=== PATIENT | female | born 1990 | race African-American/Black ===

== ENCOUNTER 2016-10-22 09:55 | Emergency (ER) ==
[2016-10-22] MEDS ORDERED: ASPIRIN PO STA (10:00)
[2016-10-22] MEDS ORDERED: NITROGLYCERIN SL PRN (10:00)
--- NOTE | 2016-10-22 10:15 | ED EKG INTERP ---
EKG Interpretation - EKG Time of EKG reading by physician:: 09:57 EKG Read and Signed by:: Asad Ann EKG Interpretation (*Must complete 3 of following elements*): Normal Rate: 78 Rhythm: NSR [place]: normal QRS: normal AR Interval: normal ST Wave: normal Attestation - Scribe Verification/Attestation Scribe:: Hermann Juárez Acting as Scribe for:: Asad Ann Scribe documention review:: This chart was documented by a scribe and accurately reflects the service the provider performed and the decisions made by the provider. Physician Attestation - Physician Attestation I, the provider, attest to the following statement:: Asad Ann Physician documentation Attestation:: This documentation recorded by the scribe accurately reflects the service I personally performed and the decisions made by me.
[2016-10-22 10:19] LABS: MANUAL DIFF NEEDED? NO
[2016-10-22 10:31] LABS: BASO% 0.2 % (0.0-0.8); EOS# 0.17 X1000 (0.0-0.7); EOS% 1.9 % (0.0-10.0); HEMATOCRIT 38.1 % (37.0-47.0); HEMOGLOBIN 13.1 g/dL (12.0-16.0); IMM GRAN# 0.04 X1000 (0.0-0.04); IMM GRAN% 0.5 % (0.0-0.5); LYMPH# 1.64 X1000 (1.2-3.4); LYMPH% 18.6 % (20.5-51.1); MCH 29.9 PG (27-31); MCHC 34.4 g/dL (33-37); MONO# 0.61 X1000 (0.11-0.59); MONO% 6.9 % (1.7-9.3); MPV 10.8 FL (7.4-10.4); PLT 258 X1000 (130-400); RBC 4.38 XMIL (4.2-5.4)
[2016-10-22 10:32] LABS: INR 0.96; PTT 25.7 Seconds (22.0-36.0)
[2016-10-22 10:35] LABS: NEUT% 71.9 % (42.2-75.2)
[2016-10-22 10:45] LABS: AGAP 10; ALBUMIN 4.1 g/dL (3.5-5.0); ALKALINE PHOSPHATASE 62 U/L (32-104); BUN 9 mg/dL (8-22); CALCIUM 8.6 mg/dL (8.8-10.2); CHLORIDE 103 mmol/L (98-107); COSMO 265; GOT 13 U/L (10-30); GPT 8 U/L (10-36); POTASSIUM 4.2 mmol/L (3.5-5.1); SODIUM 133 mmol/L (136-145); TCO2 20 mmol/L (25-35); TOTAL BILIRUBIN 0.57 mg/dL (0.20-1.00); TOTAL PROTEIN 7.1 g/dL (6.3-8.3)
[2016-10-22 10:47] LABS: CK PROFILE 177 U/L (24-173)
--- NOTE | 2016-10-22 10:49 | EKG Report ---
Test Performed on : 10/22/2016 09:57:15 AM Test Reason : Chest Pain Blood Pressure : / mmHG Vent. Rate : 078 BPM Atrial Rate : 078 BPM P-R Int : 130 ms QRS Dur : 072 ms QT Int : 386 ms P-R-T Axes : 025 025 011 degrees QTc Int : 440 ms Normal sinus rhythm. Normal ECG When compared with ECG of 11-NOV-2014 14:27, No significant change was found Unconfirmed Result
[2016-10-22 11:09] LABS: CK INDEX 0.9 (0.0-2.5); CK-MB 1.59 ng/mL (0.0-5.0)
--- NOTE | 2016-10-22 11:14 | Diag Imaging Result Document ---
PROCEDURE NAME: CHEST-2 VIEWS - 10/22/2016 CHEST X-RAY, 2 VIEWS: COMPARISON: 04/16/2015. FINDINGS: The lungs are normally expanded and clear. Heart size and mediastinal contours are normal. No pneumothorax or pleural effusion. IMPRESSION: Negative exam.
--- NOTE | 2016-10-22 11:14 | PROVIDER DOCUMENTATION ---
HPI-Chest Pain - General Chief Complaint: Chest Pain Stated Complaint: CHEST PAIN GOING TO BACK Time Seen by Provider: 10/22/16 10:12 Source: patient Allergies/Adverse Reactions: Patient Allergies Allergy/AdvReac Type Severity Reaction Status Date / Time No Known Allergies Allergy Verified 10/22/16 10:22 Home Medications: Home Medication List Medication Instructions Recorded Confirmed Last Taken Type Naproxen 500 mg PO BID #20 tablet 10/22/16 Unknown Rx - History of Present Illness-CP Nature of Presenting Problem: 26 y/o F with history of anxiety and depression presents with CP that began yesterday morning. Patient states she woke up with the pain and that it has been progressively worsening since. She describes the pain as shooting, intermittent, lasting approx 2 minutes, and radiating to mid/upper back and into left index finger and left wrist. 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 She reports increase in stress recently. She is not on any medication for anxiety or depression. She has had similar pain in the past associated with "stress". She has taken motrin, tums and pepto without relief. Location: reports: central Chest Pain Radiation: reports: back, other (left index finger) Severity in ED: moderate Onset/Duration: 2 days ago Timing: still present Context/Activities at Onset: reports: none Modifying Factors: improves with: lying down (worsens), movement (worsens) Associated Symptoms: reports: back pain. denies: abdominal pain, diaphoresis, dizziness, fever/chills, heartburn, nausea, shortness of breath, syncope, vomiting, weakness Similar Symptoms Previously?: Yes Review of Systems - Adult - REVIEW OF SYSTEMS - ADULT Constitutional: reports: no symptoms reported. denies: chills, fever Eyes: reports: no symptoms reported. denies: decreased vision, blurred vision Ears, Nose, Mouth & Throat: reports: no symptoms reported. denies: ear pain, hearing loss Cardiovascular: reports: chest pain Respiratory: reports: no symptoms reported. denies: cough, shortness of breath , wheezing Gastrointestinal: reports: no symptoms reported. denies: abdominal pain, nausea , vomiting Genitourinary: reports: no symptoms reported. denies: dysuria, hematuria Musculoskeletal: reports: back pain, muscle aches Integumentary: reports: no symptoms reported. denies: itching, rash Neurological: reports: no symptoms reported. denies: dizziness/vertigo, headache/migraines Psychiatric: reports: anxiety, depression, other (no homicidal thoughts). denies: suicidal thoughts Endocrine: reports: no symptoms reported Hematologic/Lymphatic: reports: no symptoms reported Allergic/Immunologic: reports: no symptoms reported All Other Systems: Reviewed and Negative Past History - Adult - PAST MEDICAL HISTORY-ADULT Review of Records: reports: Old Records Reviewed, Nursing Assessment Review, Medications Reviewed, Social history reviewed & non-contributory. Major Childhood Illnesses: reports: denies history Cardiovascular: reports: denies history Respiratory: reports: denies history Gastrointestinal: reports: denies history Obstetrical/Gynecological: reports: denies history Genitourinary: reports: denies history Musculoskeletal: reports: denies history Neurological: reports: denies history Psychiatric: reports: anxiety, depression, psychiatric problems (No current treatment, looking for a new psychiatrist) Endocrine/Immune: reports: denies history Other Conditions: reports: denies history - PRIOR SURGERIES/PROCEDURES Surgical/Procedure History: reports: none - PRIOR HOSPITALIZATIONS Prior Hospitalizations: reports: for other non-related - IMMUNIZATION STATUS Childhood Immunizations: See Nurse Assessment Flu Vaccine: See Nurse Assessment - FAMILY HISTORY Family History: reviewed, not pertinent Physical Exam-General - PHYSICAL EXAM-ADULT Initial Vital Signs Reviewed: Yes - CONSTITUTIONAL General Appearance: appears well, alert, no apparent distress - EYES Eyes: PERRL/EOMI, pink conjunctivae - HEAD, EARS, NOSE, MOUTH & THROAT HENMT: normocephalic/atraumatic, moist mucous membranes - NECK Neck: full range of motion, supple, normal inspection - RESPIRATORY Respiratory: lungs clear, normal breath sounds, no pleuratic chest pain, no respiratory distress, no accessory muscle use, other (mild TTP over sternum) - CARDIOVASCULAR Cardiovascular: normal peripheral pulses, regular rate, rhythm, no edema, no gallop, no JVD, no murmur - GASTROINTESTINAL (ABDOMEN) Abdominal Exam: normal bowel sounds, non tender, soft - LYMPHATIC Lymphatic: no adenopathy - MUSCULOSKELETAL Back Exam: other (left upper thoracic paraspinal muscle pain) Extremity: normal range of motion, normal inspection, other (left wrist pain). negative: pulse deficit Peripheral Pulses: radial (R): 2+, radial (L): 2+ - SKIN Integumentary: normal color, normal turgor, warm/dry - NEUROLOGIC Neurologic: grossly normal, no motor/sensory deficits - PSYCHIATRIC Psych/Mental Status: normal thought content, normal thought process, oriented x 3, depressed affect Progress - PLAN OF CARE/RESULTS Progress/Plan/Lab Results: Laboratory Tests 10/22/16 10/22/16 10/22/16 10:05 10:05 10:05 WBC 8.83 RBC 4.38 Hgb 13.1 Hct 38.1 MCV 87.0 MCH 29.9 MCHC 34.4 RDW Std Deviation 13.2 Plt Count 258 MPV 10.8 H Immature Gran % (Auto) 0.5 Neut % (Auto) 71.9 Lymph % (Auto) 18.6 L [place] % (Auto) 6.9 Eos % (Auto) 1.9 Baso % (Auto) 0.2 Immature Gran # (Auto) 0.04 Neut # (Auto) 6.35 Lymph # (Auto) 1.64 [place] # (Auto) 0.61 H Eos # (Auto) 0.17 Baso # (Auto) 0.02 PT INR PTT (Actin FS) D-Dimer 0.51 H Sodium 133 L Potassium 4.2 Chloride 103 Carbon Dioxide 20 L Anion Gap 10 BUN 9 Creatinine 0.8 Estimated GFR/1.73 m2 > 60 BUN/Creatinine Ratio 11 Glucose 97 Calculated Osmolality 265 Calcium 8.6 L Magnesium 2.0 Total Bilirubin 0.57 AST 13 ALT 8 L Alkaline Phosphatase 62 Creatine Kinase 177 H Creatine Kinase Index 0.9 CK-MB (CK-2) 1.59 Troponin T Ysi-E-Coehtcmwykd Pept Total Protein 7.1 Albumin 4.1 Globulin 3.0 Albumin/Globulin Ratio 1.4 10/22/16 10/22/16 10/22/16 10:05 10:05 10:05 WBC RBC Hgb Hct MCV MCH MCHC RDW Std Deviation Plt Count MPV Immature Gran % (Auto) Neut % (Auto) Lymph % (Auto) [place] % (Auto) Eos % (Auto) Baso % (Auto) Immature Gran # (Auto) Neut # (Auto) Lymph # (Auto) [place] # (Auto) Eos # (Auto) Baso # (Auto) PT 10.0 INR 0.96 PTT (Actin FS) 25.7 D-Dimer Sodium Potassium Chloride Carbon Dioxide Anion Gap BUN Creatinine Estimated GFR/1.73 m2 BUN/Creatinine Ratio Glucose Calculated Osmolality Calcium Magnesium Total Bilirubin AST ALT Alkaline Phosphatase Creatine Kinase Creatine Kinase Index CK-MB (CK-2) Troponin T < 0.010 Ezk-D-Lvixazcwpoe Pept 62 Total Protein Albumin Globulin Albumin/Globulin Ratio Orders Category Date Time Status Cardiac Monitoring DIRECTED Care 10/22/16 10:00 Active ED: Urine Bedside ORDERED Care 10/22/16 11:22 Active Saline Loc NOW Care 10/22/16 10:00 Active CHEST-2 VIEWS [RAD] Stat Exams 10/22/16 10:00 Draft CBC WITH ELECTRONIC DIFF [HEME] Stat Lab 10/22/16 10:05 Completed CK PROFILE [SP CHEM] Stat Lab 10/22/16 10:05 Completed COMPREHENSIVE METABOLIC PANEL [CHEM] Stat Lab 10/22/16 10:05 Completed D-DIMER [CHEM] Stat Lab 10/22/16 10:05 Completed MAGNESIUM [CHEM] Stat Lab 10/22/16 10:05 Completed PRO B-NATRIURETIC PEPTIDE Stat Lab 10/22/16 10:05 Completed PROTIME WITH INR [COAG] Stat Lab 10/22/16 10:05 Completed PTT [COAG] Stat Lab 10/22/16 10:05 Completed TROPONIN T Stat Lab 10/22/16 10:05 Completed Aspirin Med 10/22/16 10:00 Discontinued 325 mg PO STAT STA Ketorolac [Toradol] Med 10/22/16 11:38 Discontinued 30 mg IV NOW ONE Nitroglycerin Sl [Nitroglycerin] Med 10/22/16 10:00 Active 0.4 mg SL Q5M PRN PRN EKG [EKG] Stat Ther 10/22/16 10:00 Draft Vital Signs Temp Pulse Resp BP Pulse Ox 10/22/16 09:57 98.4 F 86 22 113/70 100 No Known Allergies Allergy (Verified 10/22/16 10:22) No Home Medications 10/22/16 Laboratory 10/22/16 10/22/16 10/22/16 10:05 10:05 10:05 WBC RBC Hgb Hct MCV MCH MCHC RDW Std Deviation Plt Count MPV Immature Gran % (Auto) Neut % (Auto) Lymph % (Auto) [place] % (Auto) Eos % (Auto) Baso % (Auto) Immature Gran # (Auto) Neut # (Auto) Lymph # (Auto) [place] # (Auto) Eos # (Auto) Baso # (Auto) PT 10.0 INR 0.96 PTT (Actin FS) 25.7 D-Dimer Sodium Potassium Chloride Carbon Dioxide Anion Gap BUN Creatinine Estimated GFR/1.73 m2 BUN/Creatinine Ratio Glucose Calculated Osmolality Calcium Magnesium Total Bilirubin AST ALT Alkaline Phosphatase Creatine Kinase Creatine Kinase Index CK-MB (CK-2) Troponin T < 0.010 Obs-O-Tsieumaqelo Pept 62 Total Protein Albumin Globulin Albumin/Globulin Ratio 10/22/16 10/22/16 10/22/16 10:05 10:05 10:05 WBC 8.83 RBC 4.38 Hgb 13.1 Hct 38.1 MCV 87.0 MCH 29.9 MCHC 34.4 RDW Std Deviation 13.2 Plt Count 258 MPV 10.8 H Immature Gran % (Auto) 0.5 Neut % (Auto) 71.9 Lymph % (Auto) 18.6 L [place] % (Auto) 6.9 Eos % (Auto) 1.9 Baso % (Auto) 0.2 Immature Gran # (Auto) 0.04 Neut # (Auto) 6.35 Lymph # (Auto) 1.64 [place] # (Auto) 0.61 H Eos # (Auto) 0.17 Baso # (Auto) 0.02 PT INR PTT (Actin FS) D-Dimer 0.51 H Sodium 133 L Potassium 4.2 Chloride 103 Carbon Dioxide 20 L Anion Gap 10 BUN 9 Creatinine 0.8 Estimated GFR/1.73 m2 > 60 BUN/Creatinine Ratio 11 Glucose 97 Calculated Osmolality 265 Calcium 8.6 L Magnesium 2.0 Total Bilirubin 0.57 AST 13 ALT 8 L Alkaline Phosphatase 62 Creatine Kinase 177 H Creatine Kinase Index 0.9 CK-MB (CK-2) 1.59 Troponin T Qap-A-Lbaobzmxyir Pept Total Protein 7.1 Albumin 4.1 Globulin 3.0 Albumin/Globulin Ratio 1.4 D-dimer is 0.51. She is not on OCP. No history of DVT/PE. No recent prolonged immobilization. She is not . She has a normal rate and rhythm, normal respiratory rate, and Sp02 100%. Discussed this with Dr. Ann. CTA not indicated at this time. Will treat for chest wall pain. Advised patient to return to ER for any new or worsening symptoms. Departure - Departure Time of Disposition Order: 12:01 DIAGNOSIS: Chest pain Qualifiers: Chest pain type: unspecified Qualified Code(s): R07.9 - Chest pain, unspecified Disposition: HOME 01 Certified Medical Emergency: Emergent Condition: Good Additional Instructions: ED Follow Up Instructions: You have been treated by a care provider in the Emergency Department. These instructions are being provided to you so you can have an understanding of how to care for yourself upon discharge. Upon discharge from the Emergency Department, you are responsible for making arrangements for follow-up care by a physician of your choice. Take all prescribed medications as directed. Return to the Emergency Department immediately for any new or worsening symptoms. You may call the Physician Referral phone number at [phone] to obtain a list of Physicians who are taking new patients. Prescriptions: Naproxen 500 mg PO BID #20 tablet Referrals: None,PCP [Primary Care Provider] - Attestation - Physician/ MIRNA Attestation Patient care was provided by Advanced Practice Provider:: Yes Advanced Practice Provider:: Molly Azevedo Advanced Practice Provider documentation review:: The Mid-level provider documentation, treatment plan and medical decision making was reviewed by the physician who agrees with all treatment and medical decision making by the MLP.
[2016-10-22] MEDS ORDERED: TORADOL IV ONE (11:38)
[2016-10-22 12:17] VITALS: BP 112/66
== END 2016-10-22 12:20 | disposition home or self-care (01) ==
LOC: ED 09:55
DX: R07.9 Chest pain, unspecified (principal); M54.9 Dorsalgia, unspecified; M79.645 Pain in left finger(s); M25.532 Pain in left wrist; M79.1 Myalgia; F41.9 Anxiety disorder, unspecified; F32.9 Major depressive disorder, single episode, unspecified
CPT/HCPCS: 71020; 80053; 82550; 82553; 83735; 83880; 84484; 85025; 85379; 85610; 85730; 93005; J1885

== ENCOUNTER 2017-01-28 21:35 | Inpatient (IN) ==
[2017-01-28 22:21] LABS: MANUAL DIFF NEEDED? NO; URINE CULTURE NEEDED? NO; URINE MICRO REVIEW NEEDED? NO; URINE SOURCE CATH
[2017-01-28 22:27] LABS: BASO% 0.4 % (0.0-0.8); EOS# 0.17 X1000 (0.0-0.7); EOS% 1.8 % (0.0-10.0); HEMATOCRIT 36.7 % (37.0-47.0); HEMOGLOBIN 12.7 g/dL (12.0-16.0); IMM GRAN# 0.06 X1000 (0.0-0.04); IMM GRAN% 0.6 % (0.0-0.5); LYMPH# 2.58 X1000 (1.2-3.4); MCH 30.2 PG (27-31); MCHC 34.6 g/dL (33-37); MCV 87.4 FL (81-99); MONO# 0.59 X1000 (0.11-0.59); MONO% 6.2 % (1.7-9.3); MPV 10.8 FL (7.4-10.4); PLT 259 X1000 (130-400)
[2017-01-28 22:28] LABS: BILIRUBIN URINE NEGATIVE (NEGATIVE); BLOOD URINE NEGATIVE (NEGATIVE); COLOR STRAW; GLUCOSE URINE NEGATIVE (NEGATIVE); LEUKOCYTES URINE NEGATIVE (NEGATIVE); NITRITE URINE NEGATIVE (NEGATIVE); PH URINE 5.5; PROTEIN URINE NEGATIVE (NEGATIVE); UROBILINOGEN URINE NORMAL (NORMAL)
[2017-01-28 22:38] LABS: UR AMPHETAMINES QUAL NONE DETECTED (NONE DETECT); UR BARBITUATES QUAL NONE DETECTED (NONE DETECT); UR BENZODIAZEPIN QUAL NONE DETECTED (NONE DETECT); UR CANNABINOIDS QUAL NONE DETECTED (NONE DETECT); UR COCAINE QUAL NONE DETECTED (NONE DETECT); UR METHADONE QUAL NONE DETECTED (NONE DETECT); UR OPIATES QUAL NONE DETECTED (NONE DETECT); UR OXYCODONE QUAL NONE DETECTED (NONE DETECT); UR PCP QUAL NONE DETECTED (NONE DETECT)
[2017-01-28 23:01] LABS: ACETAMINOPHEN < 1.2 ug/mL (10-30); AGAP 20; ALKALINE PHOSPHATASE 64 U/L (32-104); BUN 13 mg/dL (8-22); CALCIUM 8.6 mg/dL (8.8-10.2); CHLORIDE 100 mmol/L (98-107); COSMO 276; GOT 14 U/L (10-30); GPT 15 U/L (10-36); POTASSIUM 3.4 mmol/L (3.5-5.1); SODIUM 137 mmol/L (136-145); TCO2 17 mmol/L (25-35); TOTAL BILIRUBIN 0.38 mg/dL (0.20-1.00); TOTAL PROTEIN 6.9 g/dL (6.3-8.3)
[2017-01-28] MEDS ORDERED: NS 1,000 ML IV ONE (23:03)
[2017-01-28 23:06] LABS: SP GRAVITY URINE 1.003; TURBIDITY URINE HAZY (CLEAR)
[2017-01-28 23:21] LABS: FREE T4 1.51 ng/dL (0.93-1.70)
--- NOTE | 2017-01-28 23:22 | PROVIDER DOCUMENTATION ---
This chart was entered by Selma Stevens Scribe, acting as scribe for Yusef Hoyt MD. [id number] Abuse/Overdose - General Stated Complaint: overdose; 12 muscle relaxants unk SI Time Seen by Provider: 01/28/17 21:40 Source: patient, EMS Allergies/Adverse Reactions: Allergies Allergy/AdvReac Type Severity Reaction Status Date / Time No Known Allergies Allergy Verified 01/28/17 22:09 Home Medications: Home Medication List Medication Instructions Recorded Confirmed Last Taken Type NK [No Home Medications] 01/28/17 01/28/17 Unknown History - History of Present Illness-Drug/Alcohol Nature of Presenting Problem: 26 Y/O F presents to ED with OD. EMS states that she has SI intention s denies and confirms that she has them. 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 Pt states that she was homeless and she had an argument with mom so she took the meds. Pt is lethargic. This episode of drinking or use began:: 1/2 hour ago Situational problems related to:: reports: parent Psychiatric Complaints: reports: agitated, suicidal ideation Associated Symptoms: reports: denies symptoms Any injuries associated with this episode of intoxication?: No Similar Symptoms Previously?: No - Substance Abuse Substance Use: reports: alcohol, benzodiazepines - Overdose Intentional drug overdose?: Yes List substance(s) ingested.: benzo How did the ingestion/other suicidal act come to attention?: family Suicide Risk Assessment: organized plan, frightened friends-family Clinician's estimation of suicide risk?: high risk Review of Systems - Adult - REVIEW OF SYSTEMS - ADULT Constitutional: denies: chills, fever Eyes: reports: no symptoms reported Ears, Nose, Mouth & Throat: reports: no symptoms reported Cardiovascular: reports: no symptoms reported Respiratory: reports: no symptoms reported Gastrointestinal: reports: no symptoms reported Genitourinary: reports: no symptoms reported Musculoskeletal: reports: no symptoms reported Integumentary: reports: no symptoms reported Neurological: reports: no symptoms reported Psychiatric: reports: alcohol/drug dependence, suicidal thoughts Endocrine: reports: no symptoms reported Hematologic/Lymphatic: reports: no symptoms reported Allergic/Immunologic: reports: no symptoms reported All Other Systems: Reviewed and Negative Past History - Adult - PAST MEDICAL HISTORY-ADULT Review of Records: reports: Old Records Reviewed, Nursing Assessment Review, Medications Reviewed, Social history reviewed & non-contributory. Major Childhood Illnesses: reports: denies history Cardiovascular: reports: denies history Respiratory: reports: denies history Gastrointestinal: reports: denies history Obstetrical/Gynecological: reports: denies history Genitourinary: reports: denies history Musculoskeletal: reports: denies history Neurological: reports: denies history Psychiatric: reports: anxiety, depression, psychiatric problems (No current treatment, looking for a new psychiatrist) Endocrine/Immune: reports: denies history Other Conditions: reports: denies history - PRIOR SURGERIES/PROCEDURES Surgical/Procedure History: reports: none - PRIOR HOSPITALIZATIONS Prior Hospitalizations: reports: for other non-related - IMMUNIZATION STATUS Childhood Immunizations: See Nurse Assessment Flu Vaccine: See Nurse Assessment - FAMILY HISTORY Family History: reviewed, not pertinent Physical Exam-General - CONSTITUTIONAL General Appearance: alert, mild distress, lethargic - EYES Eyes: PERRL/EOMI, pink conjunctivae - HEAD, EARS, NOSE, MOUTH & THROAT HENMT: normocephalic/atraumatic, moist mucous membranes, normal ENT inspection, TMs normal, pharynx normal - NECK Neck: full range of motion - RESPIRATORY Respiratory: lungs clear, normal breath sounds - CARDIOVASCULAR Cardiovascular: tachycardia - GASTROINTESTINAL (ABDOMEN) Abdominal Exam: non tender, soft - MUSCULOSKELETAL Back Exam: normal inspection Extremity: non-tender - SKIN Integumentary: normal color, normal turgor - NEUROLOGIC Neurologic: grossly normal - PSYCHIATRIC Psych/Mental Status: depressed affect Progress - PLAN OF CARE/RESULTS Progress/Plan/Lab Results: Vital Signs - 8 hr 01/28/17 21:45 01/28/17 22:45 01/28/17 23:03 Temperature 98.1 F Pulse Rate 117 H 92 H 90 Respiratory Rate 26 H 21 21 Blood Pressure 114/69 114/69 68/41 O2 Sat by Pulse Oximetry 96 96 96 Laboratory Results - last 24 hr 01/28/17 01/28/17 01/28/17 22:00 22:00 22:00 WBC 9.55 RBC 4.20 Hgb 12.7 Hct 36.7 L MCV 87.4 MCH 30.2 MCHC 34.6 RDW Std Deviation 13.3 Plt Count 259 MPV 10.8 H Immature Gran % (Auto) 0.6 H Neut % (Auto) 64.0 Lymph % (Auto) 27.0 [place] % (Auto) 6.2 Eos % (Auto) 1.8 Baso % (Auto) 0.4 Immature Gran # (Auto) 0.06 H Neut # (Auto) 6.11 Lymph # (Auto) 2.58 [place] # (Auto) 0.59 Eos # (Auto) 0.17 Baso # (Auto) 0.04 Sodium 137 Potassium 3.4 L Chloride 100 Carbon Dioxide 17 L Anion Gap 20 BUN 13 Creatinine 0.9 Estimated GFR/1.73 m2 > 60 BUN/Creatinine Ratio 14 Glucose 130 H Calculated Osmolality 276 Calcium 8.6 L Total Bilirubin 0.38 AST 14 ALT 15 Alkaline Phosphatase 64 Total Protein 6.9 Albumin 4.0 Globulin 2.9 Albumin/Globulin Ratio 1.4 Urine Source Urine Color Urine Turbidity Urine pH Ur Specific [place] Urine Protein Ur Glucose (Stick) Ur Ketones (Stick) Urine Blood Urine Nitrite Urine Bilirubin Urobilinogen Dipstick Urine Leukocytes Urine Test Salicylates < 3.00 L Urine Opiates Screen Ur Oxycodone Screen Ur Methadone, Qual Acetaminophen < 1.2 L Ur Barbiturates Screen Ur Phencyclidine Scrn Ur Amphetamines Screen U Benzodiazepines Scrn Urine Cocaine Screen U Cannabinoids Screen Plasma/Serum Ethyl Alc 01/28/17 01/28/17 01/28/17 22:00 22:00 22:00 WBC RBC Hgb Hct MCV MCH MCHC RDW Std Deviation Plt Count MPV Immature Gran % (Auto) Neut % (Auto) Lymph % (Auto) [place] % (Auto) Eos % (Auto) Baso % (Auto) Immature Gran # (Auto) Neut # (Auto) Lymph # (Auto) [place] # (Auto) Eos # (Auto) Baso # (Auto) Sodium Potassium Chloride Carbon Dioxide Anion Gap BUN Creatinine Estimated GFR/1.73 m2 BUN/Creatinine Ratio Glucose Calculated Osmolality Calcium Total Bilirubin AST ALT Alkaline Phosphatase Total Protein Albumin Globulin Albumin/Globulin Ratio Urine Source CATH Urine Color STRAW Urine Turbidity HAZY Urine pH 5.5 Ur Specific [place] 1.003 Urine Protein NEGATIVE Ur Glucose (Stick) NEGATIVE Ur Ketones (Stick) NEGATIVE Urine Blood NEGATIVE Urine Nitrite NEGATIVE Urine Bilirubin NEGATIVE Urobilinogen Dipstick NORMAL Urine Leukocytes NEGATIVE Urine Test NEGATIVE Salicylates Urine Opiates Screen NONE DETECTED Ur Oxycodone Screen NONE DETECTED Ur Methadone, Qual NONE DETECTED Acetaminophen Ur Barbiturates Screen NONE DETECTED Ur Phencyclidine Scrn NONE DETECTED Ur Amphetamines Screen NONE DETECTED U Benzodiazepines Scrn NONE DETECTED Urine Cocaine Screen NONE DETECTED U Cannabinoids Screen NONE DETECTED Plasma/Serum Ethyl Alc 01/28/17 22:05 WBC RBC Hgb Hct MCV MCH MCHC RDW Std Deviation Plt Count MPV Immature Gran % (Auto) Neut % (Auto) Lymph % (Auto) [place] % (Auto) Eos % (Auto) Baso % (Auto) Immature Gran # (Auto) Neut # (Auto) Lymph # (Auto) [place] # (Auto) Eos # (Auto) Baso # (Auto) Sodium Potassium Chloride Carbon Dioxide Anion Gap BUN Creatinine Estimated GFR/1.73 m2 BUN/Creatinine Ratio Glucose Calculated Osmolality Calcium Total Bilirubin AST ALT Alkaline Phosphatase Total Protein Albumin Globulin Albumin/Globulin Ratio Urine Source Urine Color Urine Turbidity Urine pH Ur Specific [place] Urine Protein Ur Glucose (Stick) Ur Ketones (Stick) Urine Blood Urine Nitrite Urine Bilirubin Urobilinogen Dipstick Urine Leukocytes Urine Test Salicylates Urine Opiates Screen Ur Oxycodone Screen Ur Methadone, Qual Acetaminophen Ur Barbiturates Screen Ur Phencyclidine Scrn Ur Amphetamines Screen U Benzodiazepines Scrn Urine Cocaine Screen U Cannabinoids Screen Plasma/Serum Ethyl Alc 91 H Orders Category Date Time Status ACETAMINOPHEN [TDM] Stat Lab 01/28/17 22:00 Completed ALCOHOL BLOOD Stat Lab 01/28/17 22:05 Completed CBC WITH ELECTRONIC DIFF [HEME] Stat Lab 01/28/17 22:00 Completed COMPREHENSIVE METABOLIC PANEL [CHEM] Stat Lab 01/28/17 22:00 Completed FREE T4 Stat Lab 01/28/17 22:00 Received TEST-URINE [PREG] Stat Lab 01/28/17 22:00 Completed SALICYLATES [TDM] Stat Lab 01/28/17 22:00 Completed TSH Stat Lab 01/28/17 22:00 Received URINALYSIS W/POSS RFLX CULT-1 [URINALYSIS] Stat Lab 01/28/17 22:00 Results URINE DRUG SCREEN Stat Lab 01/28/17 22:00 Completed VITAMIN B12 Stat Lab 01/28/17 22:00 Received 0.9% Sodium Chloride Inj [Ns] 1,000 ml Med 01/28/17 23:03 Active IV 999 mls/hr EKG [EKG] Stat Ther 01/28/17 21:42 Ordered Result Diagrams: 01/28/17 22:00 01/28/17 22:00 - EKG 1 Time of EKG reading by physician:: 21:50 EKG Read and Signed by:: Yusef Hoyt EKG Interpretation (*Must complete 3 of following elements*): Normal Rate: 112 Rhythm: Sinus Tachycardia Comments: Borderline ECG,Possible left atrial enlargement Departure - Departure Date of Disposition Decision: 01/28/17 Time of Disposition Decision: 23:21 DIAGNOSIS: Suicide attempt Benzodiazepine overdose Qualifiers: Encounter type: initial encounter Injury intent: intentional self-harm Qualified Code(s): T42.4X2A - Poisoning by benzodiazepines, intentional self- harm, initial encounter Disposition: HOME 01 Certified Medical Emergency: Emergent Condition: Fair - Critical Care Note This patient required my direct & personal management of CC.: No This chart was documented by the indicated scribe, (Selam Stevens Scribe) and accurately reflects the services I performed and decisions made by me, Yusef Hoyt MD, as attested by the provider's signature.
[2017-01-29] MEDS ORDERED: KLOR-CON PO ONE (00:37)
[2017-01-29] MEDS ORDERED: NS 1,000 ML ONE ×2 (02:13→12:11)
[2017-01-29] MEDS ORDERED: NS 1,000 ML IV ONE (02:21)
[2017-01-29] MEDS ORDERED: LOVENOX SUBQ SCH (02:51)
[2017-01-29] MEDS ORDERED: TYLENOL PO PRN (02:51)
[2017-01-29] MEDS ORDERED: DOPAMINE 400 MG/D5W 400 MG/500 ML IV.SOLN IV SCH (02:51)
[2017-01-29] MEDS ORDERED: SODIUM CHLORIDE 0.9% INJ SCH (02:51)
[2017-01-29] MEDS ORDERED: PEPCID IV SCH (02:51)
[2017-01-29] MEDS ORDERED: ZOFRAN IV PRN (02:51)
--- NOTE | 2017-01-29 04:35 | HISTORY AND PHYSICAL ---
PRIMARY CARE PROVIDER: None. CHIEF COMPLAINT: Overdose. HISTORY OF PRESENT ILLNESS: This is a 26-year-old female who presented to the emergency room with apparent overdose. She was very upset on arrival apparently and tearful. I believe the aunt may have been with her. I am unsure. She was alone at the time of my interview. She apparently had gotten into an argument with her mother. She had received some type of medication from a friend. It is unsure if they were benzodiazepines of some sort or muscle relaxers. Originally there was some mention of taking 12 pills as well as alcohol. During my interview, the patient was fully awake and alert. She was tearful and wanting to go home. She said that she took 2 pills that were she believed muscle relaxers but she was actually unsure and had 1 beer. She did not want to hurt herself and she just wanted to leave. However, the patient was hypotensive with her blood pressure in the 80s systolic with the diastolic in the 30s with a mean arterial pressure of 50. She apparently did state she had suicidal thoughts and had tried to hurt herself on arrival, according to Dr. Hoyt, the ER provider. She has a history of depression, psychiatric problems and anxiety but is not on any medications and apparently is looking for a new psychiatrist. The patient will be admitted to ICU related to probable overdose and hypotension, previous medical history, depression and anxiety. PREVIOUS SURGICAL HISTORY: None. SOCIAL HISTORY: Lives with her children apparently. Smokes around 7 cigarettes a day. Drinks alcohol occasionally. Denies illicit drug use or abuse. FAMILY HISTORY: Positive for coronary artery disease and myocardial infarction in first-degree relatives. ALLERGIES: No known drug allergies. HOME MEDICATIONS: No home medications. REVIEW OF SYSTEMS: Fourteen point review of systems conducted with the patient. The patient states she has a headache from crying. Other pertinent positives for admission listed above in the HPI. All other systems were reviewed and found to be negative. PHYSICAL EXAMINATION: VITAL SIGNS: Temperature 98.1 degrees, pulse 89, respirations 19, blood pressure 82/38, oxygen saturation 97% on room air. GENERAL: Very tearful 26-year-old female in no acute distress lying in the ER stretcher. Answers all questions appropriately. HEENT: Head is atraumatic, normocephalic. Pupils equal, round, reactive to light. Extraocular eye movement intact. Sclerae is anicteric. Conjunctivae is pink. Oral mucosa is moist. NECK: Supple. No JVD. No thyromegaly. Trachea is midline. No cervical lymphadenopathy. CARDIAC: S1-S2 appreciated. No murmurs, gallops, rubs. Regular rhythm. No pulsatile mass. No organomegaly. EXTREMITIES: No clubbing, cyanosis, or edema. GENITOURINARY: The patient voids. Otherwise deferred. NEUROLOGICAL: Alert and oriented x3. Cranial nerves 2-12 grossly intact. SKIN: Warm, dry, intact. No acute lesions or rash. Multiple tattoos noted. DIAGNOSTIC DATA: EKG sinus tachycardia, rate 112, possible left atrial enlargement. WBC 9.50, hemoglobin 12.7, hematocrit 36.7, platelet count 259,000. Sodium 137, potassium 3.4, chloride 100, carbon dioxide 17, BUN 13, creatinine 0.9, glucose 130. Urine unremarkable. Serum alcohol 91. Toxicology screen negative. ASSESSMENT AND PLAN: 1. Overdose of an unknown substance mixed with alcohol. The patient has received fluid bolusing in the emergency room. We will continue normal saline at 125 mL an hour and transfer to the ICU for close monitoring. We will start a regular diet and have her evaluated by Moore Sledge in the a.m. Recheck EKG in a.m. and recheck laboratory data in a.m. 2. Suicidal ideation. As noted above, we will consult Moore Sledge. 3. Hypokalemia. We will treat with 40 mEq of potassium. Recheck laboratory data in a.m. 4. Tobacco use and abuse. Smoking cessation was gone over with the patient. She declines wanting to quit at this time. 5. Further recommendations per patient clinical course. Dictated by CAMILA Ziegler for Ken Santana MD cc: CAMILA Ziegler MD pt examined, agree with above [facility] MTDD
[2017-01-29] MEDS: NS 1,000 ML IV SCH ×2 (05:02→14:44)
--- NOTE | 2017-01-29 05:27 | EKG Report ---
Test Performed on : 01/28/2017 9:50:46 PM Test Reason : od Blood Pressure : / mmHG Vent. Rate : 112 BPM Atrial Rate : 112 BPM P-R Int : 140 ms QRS Dur : 074 ms QT Int : 344 ms P-R-T Axes : 060 024 015 degrees QTc Int : 469 ms Sinus tachycardia. Possible Left atrial enlargement Borderline ECG When compared with ECG of 22-OCT-2016 09:57, No significant change was found Unconfirmed Result
--- NOTE | 2017-01-29 06:32 | EKG Report ---
Test Performed on : 01/29/2017 05:46:27 AM Test Reason : chest pain Blood Pressure : / mmHG Vent. Rate : 079 BPM Atrial Rate : 079 BPM P-R Int : 136 ms QRS Dur : 072 ms QT Int : 400 ms P-R-T Axes : 046 021 004 degrees QTc Int : 458 ms Normal sinus rhythm. Normal ECG When compared with ECG of 28-JAN-2017 21:50, No significant change was found Confirmed by Baldev WARE, Andrea Marshall ([id number]) on 01/29/2017 3:00:35 PM
[2017-01-29 07:40] LABS: MANUAL DIFF NEEDED? NO
[2017-01-29 07:42] LABS: BASO% 0.4 % (0.0-0.8); EOS# 0.19 X1000 (0.0-0.7); EOS% 2.3 % (0.0-10.0); HEMATOCRIT 35.4 % (37.0-47.0); HEMOGLOBIN 12.1 g/dL (12.0-16.0); IMM GRAN# 0.03 X1000 (0.0-0.04); IMM GRAN% 0.4 % (0.0-0.5); LYMPH# 2.99 X1000 (1.2-3.4); LYMPH% 36.5 % (20.5-51.1); MCHC 34.2 g/dL (33-37); MCV 87.8 FL (81-99); MONO# 0.62 X1000 (0.11-0.59); MONO% 7.6 % (1.7-9.3); MPV 10.7 FL (7.4-10.4); NEUT% 52.8 % (42.2-75.2); PLT 230 X1000 (130-400); RBC 4.03 XMIL (4.2-5.4)
[2017-01-29 07:59] LABS: AGAP 10; BUN 10 mg/dL (8-22); CALCIUM 7.5 mg/dL (8.8-10.2); CHLORIDE 107 mmol/L (98-107); COSMO 274; MAGNESIUM 1.8 mg/dL (1.5-2.7); POTASSIUM 4.2 mmol/L (3.5-5.1); SODIUM 138 mmol/L (136-145); TCO2 21 mmol/L (25-35)
[2017-01-29] MEDS ORDERED: NICODERM PATCH TD SCH (09:00)
[2017-01-29 19:41] VITALS: BP 126/76
--- NOTE | 2017-01-30 14:05 | DISCHARGE SUMMARY ---
ADMISSION DATE: 01/28/2017 DISCHARGE DATE: 01/29/2017 FINAL DISCHARGE DIAGNOSES: 1. Drug overdose. 2. Tobacco dependence. 3. Depression. 4. Anxiety disorder. HOSPITAL COURSE: Ms. Peralta is a 26-year-old female with a history of depression and anxiety disorder, who was brought to the ER after having an overdose. The patient states that she had recently gotten into an argument with her mother and unintentionally took some muscle relaxers, or what she thought was a muscle relaxer, and followed it with a beer. The patient states that she is not suicidal and was not trying to kill herself. She does admit that she is stressed out about what is going on in her life at present. The patient states that she does have children that she was also concerned about. The patient is medically stable. The patient states that she has no will to harm herself or anyone else, and would like to be discharged home. She states that she is interested in following up with a psychiatrist as an outpatient. DISCHARGE INSTRUCTIONS: Will consult with the social workers to set the patient up for outpatient psychiatric followup. The patient is stable for discharge from the hospital. cc: Rosmery Ahn MD
== END 2017-01-29 19:40 | disposition home or self-care (01) ==
LOC: ED 21:35 → EDIPHOLD 01-29 00:49 → SUATTDRO 01-29 00:49 → EDIPHOLD 01-29 19:40
PROVIDERS: ATTEND Internal Medicine